=== PATIENT | male | born 1955 | race African-American/Black ===

== ENCOUNTER 2022-02-11 15:45 | Inpatient (IN) | payer BC, OTHER ==
[~2022-02-11] VITALS: Ht 182.9 cm; Wt 88.5 kg
[2022-02-11] MEDS ORDERED: ACETAMINOPHEN 325MG TABLET PO ONE (16:15)
[2022-02-11] MEDS ORDERED: METOCLOPRAMIDE HCL 10MG/2ML VIAL IV ONE (16:15)
[2022-02-11] MEDS ORDERED: MECLIZINE 25MG TABLET PO ONE (16:45)
[2022-02-11 17:02] LABS: BASOPHILS % 0.9 % (0.0-2.0); EOSINOPHILS % 2.4 % (0.0-5.0); HEMATOCRIT. 38.5 % (42.0-52.0); HEMOGLOBIN. 12.7 g/dL (14.0-18.0); LYMPHOCYTES % 15.6 % (20.0-50.0); MEAN CORPUSCULAR HEMOGLOBIN 26.8 pg (28.0-32.0); MEAN CORPUSCULAR VOLUME 81.3 fL (80.0-94.0); MEAN PLATELET VOLUME 7.8 fl (7.4-10.4); MONOCYTES % 7.8 % (2.0-8.0); NEUTROPHILS % 73.3 % (40.0-76.0); PLATELET 101 x1000/uL (130-400); RED BLOOD CELL COUNT 4.74 mill/uL (4.7-6.1); RED CELL DISTRIBUTION WIDTH 15.2 % (11.6-14.6)
[2022-02-11 17:09] LABS: CHLORIDE 104 mEq/L (98-107)
[2022-02-11 17:24] LABS: ETHANOL BLOOD < 10 mg/dL
[2022-02-11] MEDS ORDERED: NICARDIPINE 100 MG in SODIUM CHLORIDE 0.9% 60 ML IV PRN (21:00)
[2022-02-11] MEDS ORDERED: ONDANSETRON HCL 4MG/2ML INJ IV PRN (21:00)
[2022-02-11] MEDS ORDERED: LEVETIRACETAM 500MG PREMIX 100 ML IV SCH (21:00)
[2022-02-11] MEDS: MORPHINE SULFATE 2 MG/ML CPJ (NOT FOR IM USE) IV PRN (21:46)
[2022-02-11] MEDS: DEXT 5%/LACTATED RINGERS 1,000 ML IV SCH (21:47)
[2022-02-11 22:00] VITALS: BP_SYST 122; BP_SYST 124; BP_DIAS 74; BP_DIAS 76
[2022-02-11 22:31] VITALS: BP 125/73
[2022-02-11 23:01] VITALS: BP 127/76
[2022-02-11] MEDS ORDERED: DEXTROSE 50% WATER 50ML SYRINGE IV PRN (23:15)
[2022-02-11] MEDS: INSULIN LISPRO 100 UNITS/ML SUBCUT SCH (23:21)
[2022-02-11] MEDS: BLOOD SUGAR DIAGNOSTIC STRIP TEST SCH (23:21)
[2022-02-11 23:31] VITALS: BP 115/66
[2022-02-12] VITALS (33 sets, daily range): BP systolic 106–153; BP diastolic 66–114
[2022-02-12] MEDS ORDERED: LISI10TA26 MT (00:47)
[2022-02-12] MEDS ORDERED: RISP2TAB85 PO (00:47)
[2022-02-12] MEDS ORDERED: ESCI5SOL2 PO (00:47)
[2022-02-12] MEDS ORDERED: FAMO-135 PO (00:47)
[2022-02-12] MEDS ORDERED: TAMS-11 PO (00:47)
[2022-02-12] MEDS ORDERED: LEVE750T4 MT (00:47)
[2022-02-12] MEDS ORDERED: FURO-151 PO (00:47)
[2022-02-12] MEDS: MORPHINE SULFATE 2 MG/ML CPJ (NOT FOR IM USE) IV PRN ×4 (03:16→22:44)
[2022-02-12 05:30] LABS: HEMOGLOBIN 12.3 g/dL (14.0-18.0); MEAN CORPUSCULAR HEMOGLOBIN 27.4 pg (28.0-32.0); MEAN CORPUSCULAR VOLUME 82.1 fL (80.0-94.0); PLATELET 91 x1000/uL (130-400); RED BLOOD CELL COUNT 4.51 mill/uL (4.7-6.1)
[2022-02-12] MEDS: BLOOD SUGAR DIAGNOSTIC STRIP TEST SCH ×2 (05:52→11:26)
[2022-02-12] MEDS: INSULIN LISPRO 100 UNITS/ML SUBCUT SCH ×2 (05:52→11:26)
[2022-02-12] MEDS: LEVETIRACETAM 500MG PREMIX 100 ML IV SCH ×2 (08:38→20:47)
[2022-02-12] MEDS: PANTOPRAZOLE SODIUM 40 MG/VIAL IV SCH (08:39)
[2022-02-12] MEDS ORDERED: NALOXONE HCL 0.4MG/ML VIAL IV PRN (10:15)
[2022-02-12] MEDS ORDERED: MORPHINE SULFATE 2 MG/ML CPJ (NOT FOR IM USE) IV NR (10:30)
[2022-02-12 12:46] LABS: INR 1.1; PARTIAL THROMBOPLASTIN TIME 33.3 sec (23.4-31.0); PROTHROMBIN TIME 11.3 sec (9.6-11.0)
[2022-02-12 12:48] LABS: *AMPHETAMINES SCREEN URINE NEGATIVE (NEGATIVE); *BARBITURATES SCREEN URINE NEGATIVE (NEGATIVE); *BENZODIAZEPINES SCREEN URINE NEGATIVE (NEGATIVE); *COCAINE SCREEN URINE NEGATIVE (NEGATIVE); CANNABINOID URINE SCREEN NEGATIVE (NEGATIVE); METHADONE URINE SCREEN NEGATIVE (NEGATIVE); OPIATES URINE SCREEN PRESUMTIVE POSITIVE (NEGATIVE); PHENCYCLIDINE URINE SCREEN NEGATIVE (NEGATIVE)
[2022-02-12] MEDS ORDERED: LIDOCAINE HCL/PF 1% 10 MG/ML 5ML VIAL ONE (12:51)
[2022-02-12] MEDS ORDERED: IOHEXOL-300 100 ML BOTTLE ONE (12:51)
[2022-02-12] MEDS: DEXT 5%/LACTATED RINGERS 1,000 ML IV SCH ×2 (12:54→21:01)
[2022-02-12] MEDS ORDERED: CEFAZOLIN 1000MG PREMIX 50 ML IV ONE (13:15)
[2022-02-12] MEDS: ZOLPIDEM TARTRATE 5MG TABLET PO PRN (20:49)
[2022-02-13] VITALS: BP 129/66
[2022-02-13] MEDS: BLOOD SUGAR DIAGNOSTIC STRIP TEST SCH ×4 (00:44→18:14)
[2022-02-13 04:00] VITALS: BP 126/71
[2022-02-13] MEDS: INSULIN LISPRO 100 UNITS/ML SUBCUT SCH ×4 (06:00→18:00)
[2022-02-13 07:26] LABS: BASOPHILS % 0.5 % (0.0-2.0); EOSINOPHILS % 4.4 % (0.0-5.0); HEMATOCRIT. 36.8 % (42.0-52.0); HEMOGLOBIN. 12.7 g/dL (14.0-18.0); LYMPHOCYTES % 16.2 % (20.0-50.0); MEAN CORPUSCULAR HEMOGLOBIN 28.5 pg (28.0-32.0); MEAN CORPUSCULAR VOLUME 82.6 fL (80.0-94.0); MEAN PLATELET VOLUME 7.8 fl (7.4-10.4); MONOCYTES % 7.2 % (2.0-8.0); NEUTROPHILS % 71.7 % (40.0-76.0); PLATELET 92 x1000/uL (130-400); RED BLOOD CELL COUNT 4.45 mill/uL (4.7-6.1); RED CELL DISTRIBUTION WIDTH 14.6 % (11.6-14.6)
[2022-02-13 08:00] VITALS: BP 130/79
[2022-02-13] MEDS: LEVETIRACETAM 500MG PREMIX 100 ML IV SCH (09:53)
[2022-02-13] MEDS: PANTOPRAZOLE SODIUM 40 MG/VIAL IV SCH (09:53)
[2022-02-13 12:00] VITALS: BP 100/66
[2022-02-13] MEDS ORDERED: LEVE750T4 MT (12:31)
[2022-02-13 16:00] VITALS: BP 118/71
[2022-02-13 20:00] VITALS: BP 97/49
[2022-02-13] MEDS: LEVETIRACETAM 500MG TABLET PO SCH (20:50)
[2022-02-13] MEDS: ZOLPIDEM TARTRATE 5MG TABLET PO PRN (20:50)
[2022-02-13] MEDS: DEXT 5%/LACTATED RINGERS 1,000 ML IV SCH (23:00)
[2022-02-14] MEDS: BLOOD SUGAR DIAGNOSTIC STRIP TEST SCH ×2 (00:16→06:37)
[2022-02-14 06:00] VITALS: BP 128/73
[2022-02-14] MEDS: INSULIN LISPRO 100 UNITS/ML SUBCUT SCH ×2 (06:00)
[2022-02-14 08:00] VITALS: BP 130/74
[2022-02-14] MEDS: PANTOPRAZOLE SODIUM 40 MG/VIAL IV SCH (08:33)
[2022-02-14] MEDS: LEVETIRACETAM 500MG TABLET PO SCH (08:33)
[2022-02-14 10:19] VITALS: BP 130/74
== END 2022-02-14 11:44 | disposition home or self-care (01) | DRG 64 ==
LOC: ER 15:45 → MICUNO 18:56 → EDBEDREQTM 19:03 → EDBEDREQSVC 19:03 → EDBEDREQ 19:03 → 6EST 02-12 16:01
PROVIDERS: ADMIT Internal Medicine; ATTEND Internal Medicine
DX: I60.9 Nontraumatic subarachnoid hemorrhage, unspecified (principal); N17.0 Acute kidney failure with tubular necrosis; G93.40 Encephalopathy, unspecified; I82.411 Acute embolism and thrombosis of right femoral vein; I82.431 Acute embolism and thrombosis of right popliteal vein; N18.9 Chronic kidney disease, unspecified; I12.9 Hypertensive chronic kidney disease with stage 1 through stage 4 chronic kidney disease, or unspecified chronic kidney disease; E11.22 Type 2 diabetes mellitus with diabetic chronic kidney disease; D63.1 Anemia in chronic kidney disease; N40.0 Benign prostatic hyperplasia without lower urinary tract symptoms; H53.8 Other visual disturbances; D69.6 Thrombocytopenia, unspecified; F17.200 Nicotine dependence, unspecified, uncomplicated; Z20.822 Contact with and (suspected) exposure to COVID-19; Z95.828 Presence of other vascular implants and grafts; Z86.718 Personal history of other venous thrombosis and embolism
CPT/HCPCS: 36415; 37191; 71045; 80048; 80053; 80305; 80320; 82962; 83036; 83880; 84484; 85025; 85027; 87426; 93005; 93970; 97161; 97162; 99291; C9113; J1644; J1953; J2270; J2765; J3490; J8597; Q9967; G0480

== ENCOUNTER 2024-02-02 13:07 | Emergency (ER) | payer BC, MEDICAID ==
[~2024-02-02] VITALS: Ht 175.3 cm; Wt 82.0 kg
[~2024-02-02 13:07] MED LIST: ESCI5SOL2 PO; FAMO-135 PO; LEVE750T4 MT; LISI10TA26 MT; RISP-29 PO; TAMS-11 PO
[2024-02-02 13:10] VITALS: O2SAT 99
[2024-02-02 16:13] LABS: BASOPHILS % 1.3 % (0.0-2.0); DIFFERENTIAL COMMENT 0; EOSINOPHILS % 2.9 % (0.0-5.0); HEMATOCRIT. 29.3 % (42.0-52.0); HEMOGLOBIN. 9.6 g/dL (14.0-18.0); LYMPHOCYTES % 14.4 % (20.0-50.0); MEAN CORPUSCULAR HEMOGLOBIN 25.7 pg (28.0-32.0); MEAN CORPUSCULAR HGB CONC 32.6 g/dL (31.0-37.0); MEAN CORPUSCULAR VOLUME 78.7 fL (80.0-94.0); MEAN PLATELET VOLUME 7.6 fl (7.4-10.4); MONOCYTES % 9.2 % (2.0-8.0); NEUTROPHILS % 72.2 % (40.0-76.0); PLATELET 168 x1000/uL (130-400); RED BLOOD CELL COUNT 3.72 mill/uL (4.7-6.1); RED CELL DISTRIBUTION WIDTH 16.8 % (11.6-14.6); WHITE BLOOD COUNT 6.5 x1000/uL (4.5-11.0)
[2024-02-02 16:22] LABS: D-DIMER 0.78 mg/L FEU (<0.50); INR 1.1; PARTIAL THROMBOPLASTIN TIME 30.6 sec (23.4-31.0); PROTHROMBIN TIME 11.7 sec (9.6-11.0)
[2024-02-02 16:23] LABS: CHLORIDE 106 mEq/L (98-107); POTASSIUM 4.6 mEq/L (3.5-5.1); SODIUM 137 mEq/L (136-145)
[2024-02-02 16:24] LABS: CALCIUM 8.7 mg/dL (8.7-10.4); CARBON DIOXIDE 25 mEq/L (21-32)
[2024-02-02 16:29] LABS: GLUCOSE 86 mg/dL (70-105); UREA NITROGEN BLOOD 27 mg/dL (9-23)
[2024-02-02 16:31] LABS: TROPONIN I HIGH SENSITIVITY 12 ng/L (3.0-53)
[2024-02-02 16:33] LABS: ETHANOL BLOOD < 10 mg/dL (<10)
[2024-02-02] MEDS: ACETAMINOPHEN 1000MG/100ML 100 ML IV ONE (17:44)
[2024-02-02 18:11] LABS: TROPONIN I HIGH SENSITIVITY 12 ng/L (3.0-53)
[2024-02-02 18:21] LABS: *AMPHETAMINES SCREEN URINE NEGATIVE (NEGATIVE); *BARBITURATES SCREEN URINE NEGATIVE (NEGATIVE); *BENZODIAZEPINES SCREEN URINE NEGATIVE (NEGATIVE); *COCAINE SCREEN URINE NEGATIVE (NEGATIVE); METHADONE URINE SCREEN NEGATIVE (NEGATIVE); OPIATES URINE SCREEN NEGATIVE (NEGATIVE)
[2024-02-02 18:22] LABS: CANNABINOID URINE SCREEN NEGATIVE (NEGATIVE); ECSTASY MDMA SCREEN URINE NEGATIVE (NEGATIVE); PHENCYCLIDINE URINE SCREEN NEGATIVE (NEGATIVE)
[2024-02-02 18:30] VITALS: BP 130/74; PULSE 80; RESP 30; TEMP 98.6
== END 2024-02-02 20:30 | disposition left against medical advice (07) ==
LOC: ER 13:07 → CANBEDREQ 02-03 00:07
DX: R07.89 Other chest pain (principal); I82.501 Chronic embolism and thrombosis of unspecified deep veins of right lower extremity; E11.9 Type 2 diabetes mellitus without complications; I10 Essential (primary) hypertension; Z79.899 Other long term (current) drug therapy
CPT/HCPCS: 36415; 71045; 80048; 80305; 80320; 83880; 84484; 85025; 85379; 93005; 93970; 96365; 99285; G0480; J0131